=== PATIENT | female | born 1930 | race Caucasian/White ===

== ENCOUNTER 2017-06-20 14:10 | Emergency (ER) | payer MEDICARE, MEDICAID ==
[~2017-06-20] VITALS: Ht 152.4 cm; Wt 59.0 kg
[~2017-06-20 14:10] MED LIST: AMLO-147; ASPI-535; CYCL-319 PO; IBUP-1542 PO; LEVO75TA; SIMV20TA2; VALS160T20
[2017-06-20 14:15] VITALS: Ht 152.4 cm; Wt 59.0 kg
[2017-06-20] MEDS ORDERED: DEXAMETHASONE 10 MG/ML 1 ML INJ IV ONE (15:00)
[2017-06-20] MEDS ORDERED: DIPHENHYDRAMINE 50 MG INJ IV ONE (15:00)
[2017-06-20 15:09] LABS: BASOPHIL # 0.1 10^3/ul (0.0-0.1); BASOPHILS % 1.4 % (0.0-2.0); EOSINOPHILS # 0.5 10^3/ul (0.0-0.5); EOSINOPHILS % 5.4 % (0.0-7.0); HEMATOCRIT 38.5 % (37.0-47.0); HEMOGLOBIN 13.2 g/dl (12.0-16.0); LYMPHOCYTES % 23.7 % (15.0-51.0); MEAN CORPUSCULAR HEMOGLOBIN 31.2 pg (29.0-33.0); MEAN CORPUSCULAR HGB CONC 34.3 g/dl (32.0-37.0); MEAN PLATELET VOLUME 9.5 fl (7.4-10.4); MONOCYTE # 0.9 10^3/ul (0.3-0.9); MONOCYTES % 10.4 % (0.0-11.0); NEUTROPHIL # 4.9 10^3/ul (1.6-7.5); NEUTROPHILS % 58.9 % (39.0-77.0); PLATELET COUNT 327 10^3/UL (140-415); RED BLOOD COUNT 4.23 10^6/ul (4.20-5.40); RED CELL DISTRIBUTION WIDTH 13.8 % (11.5-14.5); WHITE BLOOD COUNT 8.4 10^3/ul (4.8-10.8)
[2017-06-20 15:37] LABS: ANION GAP 13 (8-16); BLOOD UREA NITROGEN 20 mg/dl (7-20); CALCIUM 9.4 mg/dl (8.4-10.2); CARBON DIOXIDE 27 mmol/L (21-31); CHLORIDE 99 mmol/L (97-110); CREATININE 1.08 mg/dl (0.44-1.00); GLUCOSE 113 mg/dl (70-220); POTASSIUM 3.5 mmol/L (3.5-5.1); SODIUM 135 mmol/L (135-144)
[2017-06-20] MEDS ORDERED: PANT40TA3 PO (15:45)
[2017-06-20] MEDS ORDERED: METO-319 PO (15:45)
[2017-06-20] MEDS ORDERED: AMLO-147 PO (15:46)
[2017-06-20] MEDS ORDERED: [UNRECOGNIZED DRUG - CODE] PO (15:46)
[2017-06-20] MEDS ORDERED: CLOP75TA27 PO (15:47)
[2017-06-20] MEDS ORDERED: ATOR80TA75 PO (15:47)
[2017-06-20] MEDS ORDERED: ASPI-664 PO (15:47)
[2017-06-20] MEDS ORDERED: LOSA50TA6 PO (15:48)
[2017-06-20] MEDS ORDERED: NIT4 SL (15:48)
[2017-06-20] MEDS ORDERED: LEVO75TA65 PO (15:49)
[2017-06-20 15:53] LABS: TROPONIN-I < 0.012 ng/ml (0.00-0.12)
--- NOTE | 2017-06-20 16:18 | ERD ---
ER Documentation Chief Complaint Date/Time DATE: 06/20/17 TIME: 16:15 Chief Complaint foster & dizziness x1wk, denies injury HPI History obtained from patient's daughter. This is a 87-year-old female presents to the emergency room for evaluation of a headache. The patient has had a headache for approximately 4 days duration. She localizes the right portion of her head and states is worse with pressing on the skin of her head. The patient denies any fevers or blurred vision associated with this. The patient denies any aggravating or relieving factors and has not taken any medication for this. The patient was brought to the emergency room by her daughter for evaluation. ROS All systems reviewed and are negative except as per history of present illness. Medications Home Meds Reported Medications Levothyroxine Sodium* (Levoxyl*) 75 Mcg Tablet, 75 MCG PO BEFORE BREAKFAST, #30 TAB 06/20/17 Nitroglycerin* (Nitrostat*) 0.4 Mg Tab.subl, 0.4 MG SL Q5MIN Y for CHEST PAIN, BOTTLE 06/20/17 Losartan Potassium* (Losartan Potassium*) 50 Mg Tablet, 50 MG PO QPM, TAB 06/20/17 Clopidogrel Bisulfate (Clopidogrel) 75 Mg Tablet, 75 MG PO DAILY, #30 TAB 06/20/17 Aspirin (Low Dose Aspirin) 81 Mg Tablet.dr, 81 MG PO DAILY, #30 TAB 06/20/17 Atorvastatin* (Atorvastatin*) 80 Mg Tablet, 80 MG PO QHS, #30 TAB 06/20/17 Amlodipine Besylate* (Amlodipine Besylate*) 10 Mg Tablet, 10 MG PO DAILY, #30 TAB 06/20/17 Chlorothiazide* (Chlorothiazide*) 250 Mg Tablet, 250 MG PO DAILY, CAP 06/20/17 Pantoprazole* (Protonix*) 40 Mg Tablet.dr, 40 MG PO DAILY, TAB 06/20/17 Metoprolol Succinate* (Toprol XL*) 50 Mg Tab.er.24h, 50 MG PO DAILY, #30 TAB 06/20/17 Discontinued Reported Medications Aspirin Ec (Aspir 81) 81 Mg Tablet. 01/29/13 Simvastatin (Simvastatin) 20 Mg Tablet 01/29/13 Levothyroxine Sodium (Unithroid) 75 Mcg Tablet 01/29/13 Amlodipine Besylate* (Amlodipine Besylate*) 10 Mg Tablet 01/29/13 Valsartan* (Diovan*) 160 Mg Tablet 01/29/13 Discontinued Scripts Ibuprofen* (Motrin*) 600 Mg Tab, 600 MG PO Q6, #30 TAB Prov:KATE BRUNO 06/25/16 Cyclobenzaprine Hcl* (Cyclobenzaprine Hcl*) 10 Mg Tablet, 10 MG PO TID, #15 TAB Prov:KATE BRUNO 06/25/16 Allergies Allergies: Coded Allergies: ciprofloxacin (Verified Allergy, Severe, 06/20/17) ciprofloxacin HCl (Verified Allergy, Severe, 06/20/17) hydrocodone (Verified Allergy, Severe, 06/20/17) sulfamethoxazole (Verified Allergy, Severe, N/V, 06/20/17) trimethoprim (Verified Allergy, Severe, N/V, 06/20/17) PMhx/Soc History of Surgery: Yes (hernia, bladder, heart) Anesthesia Reaction: No Hx Neurological Disorder: No Hx Respiratory Disorders: No Hx Cardiac Disorders: Yes (HTN) Hx Psychiatric Problems: No Hx Miscellaneous Medical Probl: Yes (high cholesterol, hypothyroid) Hx Alcohol Use: No Hx Substance Use: No Hx Tobacco Use: No Smoking Status: Never smoker Physical Exam Vitals Vital Signs Date Time Temp Pulse Resp B/P Pulse Ox O2 Delivery O2 Flow Rate FiO2 06/20/17 15:38 Nasal Cannula 2 06/20/17 14:15 97.9 60 18 164/70 99 Physical Exam INITIAL VITAL SIGNS: Reviewed by me GENERAL: The patient is well developed and appropriate for usual state of health in no apparent distress HEENT: Small area of erythema noted over the right occipital portion of the scalp, negative skin sloughing, no abscess pupils equal, round, and reactive to light. EOMI. There is no scleral icterus. NECK: C-spine is soft and supple, there is no meningismus. There is no cervical lymphadenopathy. LUNGS: Clear to auscultation bilaterally. There are no rales, wheezes or rhonchi. HEART: Regular rate and rhythm, no murmurs, clicks, rubs or gallops. ABDOMEN: Soft, non-tender, non-distended. There are bowel sounds in all four quadrants. No rebound or guarding. EXTREMITIES: There is no peripheral cyanosis or edema. No focal swelling or erythema. NEUROLOGICAL: The patient moves all four extremities with 5/5 strength. Cranial nerves II - XII are intact. Normal gait. Alert and oriented SKIN: There is no apparent rash or petechiae. HEME/LYMPHATIC: There is no evidence of excessive bruising or lymphedema. PSYCHIATRIC: The patient does not appear anxious or depressed. Result Diagram: 06/20/17 1450 06/20/17 1450 Results 24 hrs Laboratory Tests Test 06/20/17 14:50 White Blood Count 8.410^3/ul Red Blood Count 4.2310^6/ul Hemoglobin 13.2g/dl Hematocrit 38.5% Mean Corpuscular Volume 91.0fl Mean Corpuscular Hemoglobin 31.2pg Mean Corpuscular Hemoglobin Concent 34.3g/dl Red Cell Distribution Width 13.8% Platelet Count 67112^3/UL Mean Platelet Volume 9.5fl Neutrophils % 58.9% Lymphocytes % 23.7% Monocytes % 10.4% Eosinophils % 5.4% Basophils % 1.4% Nucleated Red Blood Cells % 0.0/100WBC Neutrophils # 4.910^3/ul Lymphocytes # 2.010^3/ul Monocytes # 0.910^3/ul Eosinophils # 0.510^3/ul Basophils # 0.110^3/ul Nucleated Red Blood Cells # 0.010^3/ul Sodium Level 135mmol/L Potassium Level 3.5mmol/L Chloride Level 99mmol/L Carbon Dioxide Level 27mmol/L Anion Gap 13 Blood Urea Nitrogen 20mg/dl Creatinine 1.08mg/dl Glucose Level 113mg/dl Calcium Level 9.4mg/dl Troponin I < 0.012ng/ml Current Medications Medications (Trade) Dose Ordered Sig/Meg Route PRN Reason Start Time Stop Time Status Last Admin Dose Admin Dexamethasone (Decadron) 10 mg ONCE ONCE IV 06/20/17 15:00 06/20/17 15:01 DC 06/20/17 15:41 Diphenhydramine HCl (Benadryl) 25 mg ONCE ONCE IV 06/20/17 15:00 06/20/17 15:01 DC 06/20/17 15:41 Procedures/MDM This 87-year-old female presents to the emergency room for evaluation of a headache. When I evaluated patient she was afebrile, nontoxic-appearing and had no focal neurological deficits. The patient did have tenderness to palpation on my examination on the right occipital portion of the scalp with an area of erythema consistent with folliculitis. The patient was given Benadryl in the emergency room for itching and states she is feeling better. No leukocytosis. My suspicion for meningitis is low at this time. The patient will be discharged home with a prescription for Motrin for pain, and Keflex for folliculitis Departure Diagnosis: Primary Impression: Headache Additional Impression: Folliculitis Condition: Stable CLAY CLARKE DO Jun 20, 2017 16:17
[2017-06-20] MEDS ORDERED: CEPH-443 PO (16:19)
[2017-06-20] MEDS ORDERED: IBUP800T25 PO (16:19)
[2017-06-20 16:34] VITALS: BP 161/54; PULSE 60; RESP 17
== END 2017-06-20 17:09 | disposition home or self-care (01) ==
LOC: E/R 14:10
DX: L73.9 Follicular disorder, unspecified (principal); I10 Essential (primary) hypertension; E03.9 Hypothyroidism, unspecified; R40.2142 Coma scale, eyes open, spontaneous, at arrival to emergency department; R40.2252 Coma scale, best verbal response, oriented, at arrival to emergency department; R40.2362 Coma scale, best motor response, obeys commands, at arrival to emergency department; Z79.82 Long term (current) use of aspirin
CPT/HCPCS: 36415; 80048; 84484; 85025; 93005; 96374; 96375; 99284; J1100; J1200

== ENCOUNTER 2018-03-13 16:26 | Emergency (ER) | END 2018-03-13 22:02 | disposition home or self-care (01) ==

== ENCOUNTER 2018-03-26 12:26 | Inpatient (IN) | END 2018-04-06 18:09 | disposition home health service (06) | DRG 699 ==

== ENCOUNTER 2018-04-16 00:05 | Inpatient (IN) | END 2018-04-18 17:21 | disposition home or self-care (01) | DRG 292 ==

== ENCOUNTER 2019-06-05 14:18 | Emergency (ER) | payer MEDICARE, OTHER ==
[~2019-06-05] VITALS: Ht 154.9 cm; Wt 69.0 kg
[~2019-06-05 14:18] MED LIST changes: +ACET325T40 PO; -AMLO-147; +AMLO-147 PO; -ASPI-535; +ASPI-817 PO; +ATOR40TA68 PO; +CLOP75TA19 PO; -CYCL-319 PO; +DEXL60CA2 PO; +DOXA2TAB61 PO; +FURO20TA3 PO; -IBUP-1542 PO; +LACT1CAP28 PO; -LEVO75TA; +LEVO75TA5 PO; +LOSA50TA14 PO; +METO-319 PO; +NYST1000 PO; +PANT40TA3 PO; +SENN-120 PO; -SIMV20TA2; -VALS160T20
[2019-06-05 14:42] VITALS: BP 126/65; PULSE 89; RESP 19; Ht 154.9 cm; Wt 69.0 kg
== END 2019-06-05 16:34 | disposition home or self-care (01) ==
LOC: E/R 14:18
DX: J02.8 Acute pharyngitis due to other specified organisms (principal); B97.89 Other viral agents as the cause of diseases classified elsewhere; I11.0 Hypertensive heart disease with heart failure; I50.9 Heart failure, unspecified; Z79.02 Long term (current) use of antithrombotics/antiplatelets; Z79.82 Long term (current) use of aspirin
CPT/HCPCS: 99283